=== PATIENT | female | born 1990 | race Hispanic/Latino ===

== ENCOUNTER 2020-04-25 02:52 | Emergency (ER) | payer SELFPAY ==
[2020-04-25] MEDS ORDERED: cloNIDine HCL 0.1 MG TAB ONE (04:52)
[2020-04-25 04:55] LABS: SARS-COV-2 RT PCR NEGATIVE (NEGATIVE)
[2020-04-25] MEDS ORDERED: MAGNES/ALUMIN/SIMET 30ML UCUP ONE (05:34)
[2020-04-25] MEDS ORDERED: LIDOCAINE VISCOUS 2% SOLN 15 ML UDC ONE (05:34)
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
[2020-04-25 06:24] VITALS: O2SAT 95
[2020-04-25 06:25] VITALS: TEMP 98.5
[2020-04-25 06:26] VITALS: BP 117/73
== END 2020-04-25 06:18 | disposition home or self-care (01) ==
LOC: ER 02:52
DX: J70.5 Respiratory conditions due to smoke inhalation (principal); Z20.822 Contact with and (suspected) exposure to COVID-19
CPT/HCPCS: 0240U; 87070; 87081; 99283